=== PATIENT | male | born 1960 | race African-American/Black ===

== ENCOUNTER 2020-05-19 21:28 | Emergency (ER) | payer MEDICAID ==
[~2020-05-19] VITALS: Ht 180.3 cm; Wt 100.0 kg
[~2020-05-19 21:28] MED LIST: PROZAC20 MG PO; SEROQUEL200 MG PO
[2020-05-19 21:44] VITALS: BP 145/96; Ht 180.3 cm; Wt 100.0 kg
[2020-05-19] MEDS ORDERED: SEROQUEL300 MG PO ×2 (21:49→22:03)
[2020-05-19] MEDS ORDERED: PROZAC40 MG PO ×2 (21:49→22:03)
[2020-05-19] MEDS ORDERED: GABAPENTIN100 MG PO ×2 (21:50→22:03)
[2020-05-19] MEDS ORDERED: EPITOL200 MG PO ×2 (21:50→22:03)
[2020-05-19] MEDS ORDERED: ORAL ANALGESIC9 GM TOPICAL (22:03)
[2020-05-19] MEDS ORDERED: NAPROSYN500 MG PO (22:03)
[2020-05-19] MEDS ORDERED: PENICILLIN V P500 MG PO (22:03)
== END 2020-05-19 22:15 | disposition home or self-care (01) ==
LOC: D.ER 21:28
DX: Z76.0 Encounter for issue of repeat prescription (principal); K08.89 Other specified disorders of teeth and supporting structures; F32.9 Major depressive disorder, single episode, unspecified; F20.9 Schizophrenia, unspecified; I10 Essential (primary) hypertension

== ENCOUNTER 2020-08-14 21:30 | Emergency (ER) | payer MEDICAID ==
[~2020-08-14] VITALS: Ht 180.3 cm; Wt 90.9 kg
[~2020-08-14 21:30] MED LIST changes: +EPITOL200 MG PO; +GABAPENTIN100 MG PO; +NAPROSYN500 MG PO; +ORAL ANALGESIC9 GM TOPICAL; +PENICILLIN V P500 MG PO; +PROZAC40 MG PO; +SEROQUEL300 MG PO
[2020-08-14 21:33] VITALS: BP 148/80; Ht 180.3 cm; Wt 90.9 kg
[2020-08-14 21:58] LABS: BASOPHILS 1.1 % (0-2); HEMOGLOBIN 14.1 g/dL (13.5-17.5); LYMPHOCYTES 39.3 % (15-50); MCHC 33.5 g/dL (31.0-37.0); MCV 89.8 fL (80.0-100.0); MEAN PLATELET VOLUME 7.6 fL (7.4-10.4); MONOCYTES 5.8 % (2-11); NEUTROPHILS 50.8 % (40-80); RBC 4.68 10x6/uL (4.20-6.10); RDW 14.2 % (11.5-14.5); WBC 8.9 10x3/uL (4.8-10.8)
[2020-08-14 22:05] LABS: PLATELET COUNT 157 10x3/uL (130-400)
[2020-08-14 22:09] LABS: BILIRUBIN 3+ (NEGATIVE); KETONE NEGATIVE (NEGATIVE); NITRITE NEGATIVE (NEGATIVE); UROBILINOGEN 8 mg/dL (< 2)
[2020-08-14 22:11] LABS: ANION GAP 11.1 mmol/L (8-16); CALCIUM 8.9 mg/dL (8.5-10.1); CARBON DIOXIDE 28.9 mmol/L (21.0-32.0); CREATININE - SERUM 1.2 mg/dL (0.6-1.3)
[2020-08-14 22:17] LABS: ALBUMIN 3.9 g/dL (3.4-5.0); BILIRUBIN - TOTAL 0.38 mg/dL (0.2-1.3); MAGNESIUM - SERUM 2.2 mg/dL (1.8-2.4); PROTEIN - SERUM 7.8 g/dL (6.4-8.2)
[2020-08-14 22:19] LABS: UDS - AMPHET NEGATIVE QUAL (NEGATIVE); UDS - BARB NEGATIVE QUAL (NEGATIVE); UDS - BENZO POSITIVE QUAL (NEGATIVE); UDS - COCAINE NEGATIVE QUAL (NEGATIVE); UDS - OPIATE NEGATIVE QUAL (NEGATIVE); UDS - PCP NEGATIVE QUAL (NEGATIVE); UDS - THC POSITIVE QUAL (NEGATIVE)
--- NOTE | 2020-08-14 22:45 | NUR ---
DR. ROMERO NOTIFIED AND SITTER ORDERED. SITTER AT BEDSIDE. NOTIFIED CHARGE NURSE AND ATTENDING IN REGARDS TO ASSESSMENT FINDINGS. RESOURCES GIVEN TO PT AND SAFETY PLAN INITIATED.
[2020-08-15 00:15] LABS: SARS-CoV-2 ANTIGEN NEGATIVE- SARS-COV-2 (NEGATIVE)
== END 2020-08-15 02:52 ==
LOC: D.ER 21:30
PROVIDERS: Student in an Organized Health Care Education/Training Program
DX: R45.851 Suicidal ideations (principal); I10 Essential (primary) hypertension; Z72.0 Tobacco use

== ENCOUNTER 2020-09-05 12:55 | Emergency (ER) | payer MEDICAID ==
[~2020-09-05] VITALS: Ht 180.3 cm; Wt 101.8 kg
[2020-09-05 12:57] VITALS: Ht 180.3 cm; Wt 101.8 kg
[2020-09-05] MEDS ORDERED: METHOCARBAMOL500 MG PO (20:06)
[2020-09-05] MEDS ORDERED: TORADOL10 MG PO (20:06)
[2020-09-05 20:13] VITALS: BP 122/71
== END 2020-09-05 20:14 | disposition home or self-care (01) ==
LOC: D.ER 12:55
DX: M54.5 Low back pain (principal); R42 Dizziness and giddiness; S16.1XXA Strain of muscle, fascia and tendon at neck level, initial encounter; S40.012A Contusion of left shoulder, initial encounter; J44.9 Chronic obstructive pulmonary disease, unspecified; I10 Essential (primary) hypertension; K21.9 Gastro-esophageal reflux disease without esophagitis; Z72.0 Tobacco use; V89.9XXA Person injured in unspecified vehicle accident, initial encounter; Y93.9 Activity, unspecified; Y92.9 Unspecified place or not applicable

== ENCOUNTER 2020-09-16 08:52 | Inpatient (IN) | payer MEDICAID ==
[~2020-09-16] VITALS: Ht 180.3 cm; Wt 90.9 kg
[~2020-09-16 08:52] MED LIST changes: +METHOCARBAMOL500 MG PO; +TORADOL10 MG PO
[2020-09-16 09:32] LABS: BASOPHILS 0.4 % (0-2); EOSINOPHILS 0.3 % (0-7); HEMATOCRIT 49.2 % (42.0-54.0); HEMOGLOBIN 16.6 g/dL (13.5-17.5); LYMPHOCYTES 18.4 % (15-50); MCH 29.9 pg (26.0-34.0); MCHC 33.7 g/dL (31.0-37.0); MCV 88.9 fL (80.0-100.0); MEAN PLATELET VOLUME 8.5 fL (7.4-10.4); MONOCYTES 5.9 % (2-11); PLATELET COUNT 94 10x3/uL (130-400); RBC 5.54 10x6/uL (4.20-6.10); RDW 13.9 % (11.5-14.5); WBC 6.4 10x3/uL (4.8-10.8)
[2020-09-16 09:35] LABS: CALC OSMOLALITY 273 mosm/kg (275-300); CALCIUM 8.6 mg/dL (8.5-10.1); CARBON DIOXIDE 33.5 mmol/L (21.0-32.0); CHLORIDE - SERUM 97 mmol/L (98-107); CREATININE - SERUM 1.1 mg/dL (0.6-1.3); GLUCOSE 130 mg/dL (74-106); POTASSIUM - SERUM 4.1 mmol/L (3.5-5.1); SODIUM 136 mmol/L (136-145); UREA NITROGEN 13 mg/dL (7-18); eGFR NON AFRICAN AMERICAN 73 mL/min (90-120)
[2020-09-16 09:39] LABS: APTT 31.3 SECONDS (22.8-39.4); INR 1.07 (0.85-1.17); PROTIME 12.8 SECONDS (11.6-15.0)
[2020-09-16 09:41] VITALS: BP 107/79
[2020-09-16 09:52] LABS: ALBUMIN 3.4 g/dL (3.4-5.0); ALKALINE PHOSPHATASE 83 U/L (30-120); ALT (SGPT) 20 U/L (10-68); BILIRUBIN - TOTAL 0.61 mg/dL (0.2-1.3); CREATINE KINASE 54 UL (21-232); MAGNESIUM - SERUM 2.3 mg/dL (1.8-2.4); PROTEIN - SERUM 7.7 g/dL (6.4-8.2); THYROID STIMULATING HORMONE 2.25 uIU/mL (0.36-3.74); TROPONIN-I < 0.017 ng/mL (0.000-0.060)
[2020-09-16] MEDS ORDERED: SEROQUEL300 MG PO (09:54)
[2020-09-16] MEDS ORDERED: LOPRESSOR25 MG PO (09:54)
[2020-09-16] MEDS ORDERED: TOFRANIL25 MG PO (09:55)
[2020-09-16 10:49] LABS: PLATELET ESTIMATE DECREASED
[2020-09-16 12:10] LABS: BILIRUBIN NEGATIVE (NEGATIVE); KETONE NEGATIVE mg/dL (< 1+); NITRITE NEGATIVE (NEGATIVE); UROBILINOGEN 8 mg/dL (< 2); WHITE CELLS - URINE 1 HPF (0-1)
[2020-09-16 12:15] LABS: UDS - AMPHET NEGATIVE QUAL (NEGATIVE); UDS - BARB NEGATIVE QUAL (NEGATIVE); UDS - BENZO NEGATIVE QUAL (NEGATIVE); UDS - COCAINE NEGATIVE QUAL (NEGATIVE); UDS - OPIATE NEGATIVE QUAL (NEGATIVE); UDS - PCP NEGATIVE QUAL (NEGATIVE); UDS - THC NEGATIVE QUAL (NEGATIVE)
--- NOTE | 2020-09-16 13:48 | NUR ---
PT TO MRI WITH TECH AT THIS TIME.
[2020-09-16 17:28] VITALS: BP 119/60
[2020-09-16 20:00] VITALS: BP 135/84
[2020-09-17 01:13] VITALS: Ht 180.3 cm; Wt 90.9 kg
[2020-09-17 04:29] VITALS: BP 104/64
[2020-09-17 06:31] LABS: BASOPHILS 0.2 % (0-2); EOSINOPHILS 0.2 % (0-7); HEMATOCRIT 43.8 % (42.0-54.0); HEMOGLOBIN 14.9 g/dL (13.5-17.5); LYMPHOCYTES 19.1 % (15-50); MCH 29.9 pg (26.0-34.0); MCV 87.8 fL (80.0-100.0); MEAN PLATELET VOLUME 8.8 fL (7.4-10.4); MONOCYTES 5.2 % (2-11); NEUTROPHILS 75.3 % (40-80); PLATELET COUNT 94 10x3/uL (130-400); RBC 4.98 10x6/uL (4.20-6.10); RDW 13.8 % (11.5-14.5); WBC 6.4 10x3/uL (4.8-10.8)
[2020-09-17 07:27] LABS: CALC OSMOLALITY 271 mosm/kg (275-300); CHLORIDE - SERUM 100 mmol/L (98-107); CHOL - HDL RATIO 3.8 ratio (2.3-4.9); CHOLESTEROL, TOTAL 124 mg/dL (0-200); GLUCOSE 102 mg/dL (74-106); HDL CHOLESTEROL 33 mg/dL (32-96); LDL CHOLESTEROL 78 mg/dL (0-100); LDL-HDL RATIO 2.4 ratio (1.5-3.5); PHOSPHOROUS 2.9 mg/dL (2.5-4.9); POTASSIUM - SERUM 3.9 mmol/L (3.5-5.1); SODIUM 136 mmol/L (136-145); T4 THYROXIN - FREE 0.97 ng/dL (0.76-1.46); THYROID STIMULATING HORMONE 2.15 uIU/mL (0.36-3.74); TRIGLYCERIDE 65 mg/dL (30-200); UREA NITROGEN 12 mg/dL (7-18); eGFR NON AFRICAN AMERICAN 81 mL/min (90-120)
--- NOTE | 2020-09-17 08:54 | NUR ---
RESTING IN BED ON LEFT SIDE WITH EYES CLOSED. AROUSES EASILY TO VOICE. DENIES ANY NEEDS AT THIS TIME. BED IN LOWEST POSITION, BED RAILS X2, CALL LIGHT WITHIN REACH. WILL CONTINUE POC.
[2020-09-17 09:08] VITALS: BP 122/79
--- NOTE | 2020-09-17 11:06 | NUR ---
I have reviewed this patient and I concur with the Shift Assessment completed by the Licensed Practical Nurse today this shift.
--- NOTE | 2020-09-17 13:06 | HP ---
PATIENT: [facility] MEDICAL RECORD: [id number] ACCOUNT: [id number] LOCATION:[facility] [address] : 62 ADMISSION DATE: 09/16/20 PCP: SHELLIE MELGOZA MD HISTORY AND PHYSICAL EXAMINATION CHIEF COMPLAINT: Weakness times 4 days and slurring speech times 2 days. HISTORY OF PRESENT ILLNESS: This is a 59-year-old white male who was brought in to the Emergency Department for evaluation. His was concerned about a possible stroke. He has already been seen by Dr. Koroma, the neurologist and his note is of great help. He has had some right-sided weakness and dysarthria for the last 12 hours or so. She has also been in unsteady gait for the last 3-4 days; story is his was concerned about a stroke. He was not taking his medications correctly. The [facility] after an 11-year incarceration and placed in a situation where he is taking care of his and trying to find work. He has mental diagnosis of Schizophrenia, possibly bipolar; I am not sure who his psychiatrist is. She has had some medications adjusted and the patient reports he was having significant side effects after these adjustments and he stopped some of the medicines a couple of weeks ago. In the ED, a CT of the head showed no hemorrhage, no evidence of ischemia, no mass lesion. Basically, his lab was pretty much normal except platelets low at 94,000. Further radiology exams have also been done and he is admitted for further evaluation. PAST MEDICAL HISTORY: Coronary artery disease with a history of an [place], hypertension, schizophrenia, osteoarthritis, and reflux. PAST SURGICAL HISTORY: He has had stents placed. ALLERGIES: None known. HOME MEDICATIONS: Reportedly had been Robaxin 500 mg t.i.d. p.r.n., though this may have been just a short prescription, naproxen 500 mg b.i.d. p.r.n. Quetiapine 300 mg once a day (reportedly up to 600 mg once a day before the patient moved it back down). Carbamazepine 200 mg once a day, Tofranil 25 mg 2 pills once a day, gabapentin 100 mg 2 at bedtime and metoprolol tartrate 25 mg twice a day. HABITS: He does smoke. Denies alcohol or drug use. FAMILY HISTORY: His father at 62 of a brain tumor. Mother around 50 of unknown causes. SOCIAL HISTORY: He is , unemployed taking care of his sick and looking for a job. He was [facility] [place] [facility] and out approximately 10 or 11 months ago. REVIEW OF SYSTEMS: GENERAL: No major weight changes. HEENT: No particular sinus or allergy problems. RESPIRATORY: No known diagnosis of COPD. CARDIAC: History of coronary artery disease and [place]. GASTROINTESTINAL: No known diarrhea, constipation, or heartburn. GENITOURINARY: No significant problems there. MUSCULOSKELETAL: Few joint aches and pains. HISTORY AND PHYSICAL [id number] [facility] NEUROLOGIC: No known migraines. PSYCHIATRIC: Reportedly a history of schizophrenia. PHYSICAL EXAMINATION: VITAL SIGNS: Temperature 97.3, pulse 97, respirations 18, blood pressure 118/73, O2 sat 97%. Generally, he is easily awakened. SKIN: Multiple tattoos. HEENT: Unremarkable. NECK: Supple. No JVD or bruit. HEART: Regular rate and rhythm. LUNGS: Fairly clear. ABDOMEN: Soft, flat, nontender. NEUROLOGIC: Per Dr. Koroma showed cranial nerves II-XII intact. Motor strength showed symmetrical, 5/5 strength. NEUROLOGICAL: His neurologic exam is essentially unremarkable. LABORATORY DATA: Urinalysis is normal. Urine drug screen is negative. TSH 2.25. CBC with a white count of 6400, hemoglobin 16.6, hematocrit 49.2, platelets are low at 94,000. Basic metabolic panel: Sodium 136, potassium 4.1, chloride 97, CO2 33.5, BUN 13, creatinine 1.1, glucose 130, calcium 8.6. Liver functions were all normal. INR 1.07. CT of the head shows no acute process. Chest x-ray shows no acute process. MRI of the brain is normal. CTA of the head and neck is normal. ASSESSMENT: 1. Transient right-sided weakness. 2. Confusion. 3. Gait instability. 4. Dysarthria. 5. Uncertain mental illness. 6. History of coronary artery disease. PLAN: He is on telemetry. We will get echo. I have physical therapy get him up and walk him tomorrow. I agree with Dr. Koroma on starting aspirin 162 mg. Consider psych evaluation. I will find out more from the patient about who he goes to and when his next followup is tomorrow. The test or procedures as warranted. TRANSINT:[id number] Voice Confirmation ID: [id number] DOCUMENT ID: [id number] JAYDEN RUFFIN MD at 1306 CC: [id number] DICTATION DATE: 09/16/202146 HOT KNIFE CUTTER: 09/16/20 2307 ADM IN [facility] [address] [id number]
[2020-09-17] MEDS ORDERED: BAYER CHEWABLE81 MG PO (13:21)
--- NOTE | 2020-09-17 14:19 | NUR ---
SIGNED ALL NECESSARY DISCHARGE PAPERWORK. REMOVED IV FROM LEFT AC, CATHETER TIP INTACT. TOLERATED WELL. WAITING FOR RIDE. DENIES FURTHER NEEDS FROM HOSPITAL/STAFF.
[2020-09-17 14:49] VITALS: BP 133/77
--- NOTE | 2020-09-17 14:49 | NUR ---
ESCORTED OUT VIA WHEELCHAIR.
--- NOTE | 2020-09-17 19:16 | MORECARE ---
CASE MANAGEMENT DISCHARGE SUMMARY PATIENT: [facility] FERRIS UNIT: [id number] ADM DATE: 09/16/20 AGE: 59 : 62 SEX: M ROOM/BED: D.2240 AUTHOR: FAIZA KWOK PHYSICIAN: REFERRING PHYSICIAN: JAYDEN RUFFIN MD DATE OF SERVICE: 09/17/20 Case Management Discharge Planning Summary DCP REVIEW SUMMARY ANTICIPATED D/C DATE: 09/17/2020 EXPECTED LOS : 1 CASE STATUS: DCP Initiated INITIAL REVIEW: 09/16/2020 INITIAL REVIEWER: Jake Caballero FINAL DISCHARGE DISPOSITION: : FINAL REVIEWER: FINAL REVIEW DATE: DCP Focus Questions & Answers DCP Evaluation QUESTION: ANSWER Patient and/or caregiver agree upon recommended discharge plan? : Yes Family / Caregiver's ability to cope with chronic illness: : a. Adequate (ability to meet patient's medical needs, ensures patient attends medical appts.) Patient's current cognitive status: : *Oriented to person, place, situation, time and present Patient's ability to cope with chronic illness : d. No chronic illness Patient gives permission to discuss discharge plans with: (name, relationship and number) : spouse, Zulema Ferris, Does the patient have the ability to pay for or attain post discharge needs / services? : Yes Functional screen assessment: : Basic needs can adequately be met by self Family / Caregiver's ability to cope with chronic illness: : a. Adequate (ability to meet patient's medical needs, ensures patient attends medical appts.) Physical Status: : Independent with ADL's Equipment needed for post hospitalization: : None Is there a likelihood that the patient will require additional services to return to the preadmission environment? : No Living Arrangements: : Home with Spouse/Significant Other Patient with capacity for self-care or can be cared for in same environment as prior to hospitalization? : Yes Baseline cognitive status: : *Oriented to person, place, situation, time and present Physical environment modification needed / anticipated for discharge: : No Medication Management: : Patient states can read and understand medication labels Pharmacy name(s): : [facility] [place] Does Patient have transportation to get home and to follow-up medical appointments when discharged from the hospital? : Yes Would patient like to participate in any Care Coordination programs (if applicable): : Not applicable Does the patient have electricity at home? : Yes Does the patient have running water in their house? : Yes Equipment in use: : Walker - Rolling Mental health screen: : No mental health history DCP Re-evaluation QUESTION: ANSWER Would patient like to participate in any Care Coordination programs (if applicable): : Not applicable PATIENT: [facility] FERRIS ENCOUNTER: [id number] MEDICAL RECORD#: [id number] ADMISSION DATE: 09/16/2020 DISCHARGE DATE: 09/17/2020 ATTENDING MD: JAYDEN VENEGAS : AGE: 59 MARITAL STATUS: M DC PLAN ID: [id number] FACILITY: [facility] PRINTED ON: 09/17/20 19:16 CT All edits/amendments must be made on the electronic document DICTATION DATE: 09/17/201914 ART HANDLER: EMILY 09/17/201914 RPT#: [id number] DC DATE:09/17/20 STATUS: DIS IN [facility] [address] [place] [address] END OF REPORT
--- NOTE | 2020-09-18 18:20 | MORECARE ---
CASE MANAGEMENT DISCHARGE SUMMARY PATIENT: ISH FERRIS UNIT: [id number] ADM DATE: 09/16/20 AGE: 59 : 62 SEX: M ROOM/BED: D.2240 AUTHOR: FAIZA KWOK PHYSICIAN: REFERRING PHYSICIAN: JAYDEN RUFFIN MD DATE OF SERVICE: 09/18/20 Case Management Discharge Planning Summary COMMENTS ENTERED DATE: 09/17/20 19:15 CT COMMENT TYPE: Discharge Planning REVIEWER: Jake Caballero CM met with patient to complete DC plan and to evaluate needs. Patient lives independently with his spouse, Zulema Ferris, . Patient stated that his home is safe and has electricity and running water. Patient stated that he is able to manage entering and moving within his home without difficulty. Patient stated that he has a walker at home that he uses at times. Patient stated that he has no problems paying for medications and he fills his medications at [facility] on [address]. At discharge, the patient plans to return home and feels this is a safe discharge. CM discussed availability of home health, rehab services, and medical equipment. Patient declined HHS, SNF, IPR, and DME. Patient voiced no other needs at this time and is satisfied with DC plan. Transportation provider at discharge will be with Zulema. CM will continue to follow and will assist as needed with dc plans/needs. DCP REVIEW SUMMARY ANTICIPATED D/C DATE: 09/17/2020 EXPECTED LOS : 1 CASE STATUS: TXP Complete INITIAL REVIEW: 09/16/2020 INITIAL REVIEWER: Jake Caballero FINAL DISCHARGE DISPOSITION: : FINAL REVIEWER: FINAL REVIEW DATE: TXP Focus Questions & Answers DCP Evaluation QUESTION: ANSWER Patient and/or caregiver agree upon recommended discharge plan? : Yes Family / Caregiver's ability to cope with chronic illness: : a. Adequate (ability to meet patient's medical needs, ensures patient attends medical appts.) Patient's current cognitive status: : *Oriented to person, place, situation, time and present Patient's ability to cope with chronic illness : d. No chronic illness Patient gives permission to discuss discharge plans with: (name, relationship and number) : spouse, Zulema Ferris, Does the patient have the ability to pay for or attain post discharge needs / services? : Yes Functional screen assessment: : Basic needs can adequately be met by self Family / Caregiver's ability to cope with chronic illness: : a. Adequate (ability to meet patient's medical needs, ensures patient attends medical appts.) Physical Status: : Independent with ADL's Equipment needed for post hospitalization: : None Is there a likelihood that the patient will require additional services to return to the preadmission environment? : No Living Arrangements: : Home with Spouse/Significant Other Patient with capacity for self-care or can be cared for in same environment as prior to hospitalization? : Yes Baseline cognitive status: : *Oriented to person, place, situation, time and present Physical environment modification needed / anticipated for discharge: : No Medication Management: : Patient states can read and understand medication labels Pharmacy name(s): : [facility] on [address] Does Patient have transportation to get home and to follow-up medical appointments when discharged from the hospital? : Yes Would patient like to participate in any Care Coordination programs (if applicable): : Not applicable Does the patient have electricity at home? : Yes Does the patient have running water in their house? : Yes Equipment in use: : Walker - [place] Mental health screen: : No mental health history DCP Re-evaluation QUESTION: ANSWER Would patient like to participate in any Care Coordination programs (if applicable): : Not applicable PATIENT: [facility] FERRIS ENCOUNTER: [id number] MEDICAL RECORD#: [id number] ADMISSION DATE: 09/16/2020 DISCHARGE DATE: 09/17/2020 ATTENDING MD: JAYDEN VENEGAS : AGE: 59 MARITAL STATUS: M DC PLAN ID: [id number] FACILITY: [facility] PRINTED ON: 09/18/20 18:20 CT All edits/amendments must be made on the electronic document DICTATION DATE: 09/18/201819 SHOCHET: EMILY 09/18/201819 RPT#: [id number] DC DATE:09/17/20 STATUS: DIS IN [facility] [address] [place] [address] END OF REPORT
== END 2020-09-17 14:49 | disposition home or self-care (01) | DRG 57 ==
LOC: D.ER 08:52 → D.EDHOLD 13:18 → D.MS 15:09
PROVIDERS: Family Medicine; ADMIT Family Medicine; ATTEND Family Medicine
DX: G81.91 Hemiplegia, unspecified affecting right dominant side (principal); R41.0 Disorientation, unspecified; R26.89 Other abnormalities of gait and mobility; R47.1 Dysarthria and anarthria; F99 Mental disorder, not otherwise specified; I25.10 Atherosclerotic heart disease of native coronary artery without angina pectoris